=== PATIENT | male | born 1960 | race Caucasian/White ===

== ENCOUNTER 2017-06-07 01:06 | Emergency (ER) | payer OTHER ==
[2017-06-07] MEDS: ACETAMINOPHEN 325 MG TAB PO (01:33)
== END 2017-06-07 01:39 | disposition home or self-care (01) ==
LOC: FTE 01:06
DX: J06.9 Acute upper respiratory infection, unspecified (principal); I10 Essential (primary) hypertension
CPT/HCPCS: 99284; Z7502

== ENCOUNTER 2017-06-11 08:22 | Emergency (ER) | payer OTHER | END 2017-06-11 10:15 | disposition home or self-care (01) | LOC: FTE 08:22 | DX: J20.9 Acute bronchitis, unspecified (principal); J06.9 Acute upper respiratory infection, unspecified; I10 Essential (primary) hypertension | CPT/HCPCS: 99284; Z7502 ==